=== PATIENT | male | born 1945 ===

== ENCOUNTER → 2024-08-29 12:39 | Outpatient (REF) | payer MEDICARE, OTHER, SELFPAY | LOC: MRI 3T 12:39 | PROVIDERS: ATTENDING PHYSICIAN Specialist; FAMILY PHYSICIAN Physician Assistant | DX: C61 Malignant neoplasm of prostate (principal); R97.20 Elevated prostate specific antigen [PSA] | CPT/HCPCS: 72197; A9575 ==

== ENCOUNTER → 2025-01-02 11:36 | Outpatient (REF) | payer MEDICARE, OTHER, SELFPAY | LOC: CLAB 11:36 | PROVIDERS: ATTENDING PHYSICIAN Specialist | DX: C61 Malignant neoplasm of prostate (principal) | CPT/HCPCS: 88305; 88344 ==